=== PATIENT | female | born 1985 | race African-American/Black ===

== ENCOUNTER 2023-02-18 11:57 | Emergency (ER) | payer MEDICAID, SELFPAY ==
[2023-02-18 12:10] VITALS: BP 145/84; PULSE 115; RESP 19; O2SAT 98; BMI 48.4
--- NOTE | 2023-02-18 12:10 | ED_ITS ---
HPI - Medical Clearance General Chief complaint: Medical Clearance Stated complaint: Medical clearance Time Seen by Provider: 02/18/23 12:51 Source: patient Mode of arrival: ambulatory Limitations: no limitations History of Present Illness HPI Narrative: This is a 37-year-old female presenting for medical clearance requesting a urine toxicology screen, needs it to go back to her residential home. Patient does admit to crack cocaine use and ethanol use last night into early this morning. Drank 1/2 pt of [place]. She requests that we call her program prior to discharge to see if she is accepted back into the program. Denies suicidal and homicidal ideation and medical complaints at this time Related Information Allergies Allergy/AdvReac Type Severity Reaction Status Date / Time No Known Allergies Allergy Verified 02/18/23 12:10 Review of Systems Review of Systems: Constitutional : No Weight loss, No Fever, No Chills, No Fatigue, No Malaise ENT/Mouth : No sore throat, No Rhinorrhea Eyes: No Eye Pain, No Swelling, No Redness Cardiovascular : No Chest Pain, No SOB, No Dyspnea on Exertion, No Orthopnea, No Edema, No Palpitations Respiratory : No Cough, No Sputum, No Wheezing Gastrointestinal : No Nausea, No Vomiting, No Diarrhea, No Constipation, No abdominal Pain, No Hematochezia, No Melena Genitourinary : No Dysuria, No Urinary Frequency, No Hematuria, Musculoskeletal : No joint pain, No Myalgias, No Joint Swelling Skin : No Skin Lesions, No rash Neuro : No Weakness, No Numbness, No Dizziness, No Headache Psych : No Anxiety/Panic, No Depression All other systems reviewed and are negative Yes all other systems are reviewed and are negative [facility] Past Medical History Attestation statement: The following information was validated with the patient. Source: old records reviewed and nursing notes reviewed Social History Social History Smoked in Last 30 Days: Yes Use of substances other than those prescribed or required for medical reasons: Yes Substance Use Type: Crack/Cocaine Substance Use Frequency: Daily Advance Directives: No Advance Directives Information Provided: Yes Patient : No Physical Exam Vital Signs: Vital Signs: Last Vital Signs Pulse 115 H 02/18/23 12:10 Resp 19 02/18/23 12:10 BP 145/84 H 02/18/23 12:10 Pulse Ox 98 02/18/23 12:10 O2 Del Method Room Air 02/18/23 12:10 BMI result Body Mass Index 48.4 vss Appearance: Alert.? Oriented X3.? No acute distress.? Head: Normocephalic, atraumatic, no step-offs or deformities Eyes: Pupils equal, round and reactive to light.? CVS: Normal heart rate and rhythm.? Pulses normal.? Respiratory: No respiratory distress.? Breath sounds normal.? Abdomen: Soft and nontender.? Skin: Skin warm and dry.? Normal skin color.? Normal skin turgor.? Extremities: No lower extremity edema.? No calf ttp. 5/5 strength to bilateral upper and lower extremities Neuro: Oriented X 3.? No motor deficit.? No sensory deficit. CN 2-12 intact Course Course Course Narrative: RME: 37yo F w/PMHx substance abuse presenting to the ED for medical clearance for [facility]. Admits to using crack cocaine & ETOH. [place] [facility] [place] if [place]'ll be [place] back [place] AGUILAR ordered Full HPI, ROS and PE to be performed by primary ED provider. Reevaluation(s) Reevaluation #1: toxicology pending no need for labs or imaging patient without medical complaints. Educated patient on diagnosis and treatment plan, answered all question, patient verbalizes understanding. At this time patient will be discharged home, advised to return with new or worsening symptoms. Educated on worrisome signs and symptoms and when to return. At this time I feel comfortable discharge home. Time: 13:56 Medical Decision Making Medical Decision Making [facility] Narrative: 37-year-old female presents requesting medical clearance to return to [facility] PE- benign. normal physical exam, no concerns for metabolic derangements or acute process. Likely polysubstance abuse and alcohol intoxication. No trauma. Plan U tox discharge back to program if possible. Differential Diagnosis Differential Diagnoses: The differential diagnosis associated with the presentation includes normal physical exam, no concerns for metabolic derangements or acute process. Likely polysubstance abuse and alcohol intoxication. No trauma. Admission/Observation Consideration of admission/observation: Escalation of care including admission/observation considered Core Measures AMI core measures followed: Yes Measure exclusions: not indicated Critical Care Time Critical Care Time Critical Care Time: No Discharge Plan Discharge Clinical Impression: Crack cocaine use, Alcohol abuse Patient Disposition: Home, Self-Care Instructions: Cocaine Abuse (ED), Abuse of Alcohol (DC) Additional Instructions: Take your medications as prescribed. If you were prescribed antibiotics today, it is important that you take your medication to their entirety, do not skip any doses, do not finish them early. Follow-up with your primary care provider this week. Return to the emergency department with new or worsening symptoms. Such as fevers, chills, chest pain, shortness of breath, nausea, vomiting, dizziness, headache, vision changes, lethargy In case of emergency call 911 Referrals: Physician,None [Primary Care Provider] - 2 days
[2023-02-18 14:24] LABS: Amphetamine Screen Urine Not Detected (Not Detect); Barbiturates, Urine Not Detected (Not Detect); Benzodiazepines Screen Urine Not Detected (Not Detect); Cannabinoid Screen Urine Not Detected (Not Detect); Cocaine Screen Urine POSITIVE (Not Detect); Fentanyl, urine Not Detected (Not Detect); Opiate Screen Urine Not Detected (Not Detect); Phencyclidine Screen Urine Not Detected (Not Detect)
--- NOTE | 2023-02-18 14:36 | PC.NURSE ---
pt not in room at time of discharge, no paperwork provided
== END 2023-02-18 14:36 | disposition home or self-care (01) ==
PROVIDERS: Physician Assistant; Emergency Provider Emergency Medicine
DX: F14.90 Cocaine use, unspecified, uncomplicated (principal); F10.10 Alcohol abuse, uncomplicated
CPT/HCPCS: 80307; 99283